=== PATIENT | female | born 1980 | race American Indian/Alaskan Native ===

== ENCOUNTER 2018-08-04 09:09 | Emergency (ER) | payer SELFPAY ==
[2018-08-04 09:22] VITALS: BP 115/71
[2018-08-04] MEDS ORDERED: CLEOCIN 900 MG/50 mL 900 MG/50 ML BAG IV ONE (09:34)
[2018-08-04] MEDS ORDERED: NACL 0.9% 1000 ML 1,000 ML IV ONE (09:34)
--- NOTE | 2018-08-04 09:46 | Emergency Department Report ---
ED ENT HPI - General Chief complaint: Dental/Oral Stated complaint: FACE SWELLING Time Seen by Provider: 08/04/18 09:30 Source: patient Mode of arrival: Ambulatory Limitations: No Limitations - History of Present Illness Initial comments: This is a 37-year-old female nontoxic, well nourished in appearance, no acute signs of distress presents to the ED with c/o of left upper toothache weeks. Patient denies following up with a dentist. Patient stated that pain radiates from his job to his left side of head. Patient otherwise denies any head traum a. Patient describes toothache as aching level of 8 out of 10. Patient stated this morning developed some facial swelling. Patient denies any numbness, tingling, fever, chills, headache, stiff neck, abdominal pain, chest pain, shortness of breath. Patient denies any drug allergies or significant past medical history. MD complaint: tooth pain -: week(s) Location: tooth # 1 - pain here Severity: mild Severity scale (0 -10): 8 Quality: aching Consistency: constant Improves with: none Worsens with: none Associated Symptoms: gum swelling, toothache. denies: cough, pain with swallowing, sore throat, tinnitus, hearing loss, discharge from ear, rhinorrhea - Related Data Previous Rx's Medication Instructions Recorded Last Taken Type Acetaminophen/Codeine [Tylenol 1 tab PO Q6H PRN #12 tab 08/04/18 Unknown Rx /Codeine # 3 tab] Chlorhexidine Mouthwash [Peridex] 15 ml MM BID #1 bottle 08/04/18 Unknown Rx Clindamycin [Clindamycin CAP] 300 mg PO Q6H #28 capsule 08/04/18 Unknown Rx Ibuprofen [Motrin] 600 mg PO Q8H PRN #20 tablet 08/04/18 Unknown Rx Allergies Allergy/AdvReac Type Severity Reaction Status Date / Time No Known Allergies Allergy Unverified 08/04/18 09:23 ED Dental HPI - General Chief complaint: Dental/Oral Stated complaint: FACE SWELLING Time Seen by Provider: 08/04/18 09:30 Source: patient Mode of arrival: Ambulatory Limitations: No Limitations - Related Data Previous Rx's Medication Instructions Recorded Last Taken Type Acetaminophen/Codeine [Tylenol 1 tab PO Q6H PRN #12 tab 08/04/18 Unknown Rx /Codeine # 3 tab] Chlorhexidine Mouthwash [Peridex] 15 ml MM BID #1 bottle 08/04/18 Unknown Rx Clindamycin [Clindamycin CAP] 300 mg PO Q6H #28 capsule 08/04/18 Unknown Rx Ibuprofen [Motrin] 600 mg PO Q8H PRN #20 tablet 08/04/18 Unknown Rx Allergies Allergy/AdvReac Type Severity Reaction Status Date / Time No Known Allergies Allergy Unverified 08/04/18 09:23 ED Review of Systems ROS: Stated complaint: FACE SWELLING Other details as noted in HPI Constitutional: denies: chills, fever Eyes: denies: eye pain, eye discharge, vision change ENT: dental pain. denies: ear pain, throat pain Respiratory: denies: cough, shortness of breath, wheezing Cardiovascular: denies: chest pain, palpitations Endocrine: no symptoms reported Gastrointestinal: denies: abdominal pain, nausea, diarrhea Genitourinary: denies: urgency, dysuria, discharge Musculoskeletal: denies: back pain, joint swelling, arthralgia Skin: denies: rash, lesions Neurological: denies: headache, weakness, paresthesias Psychiatric: denies: anxiety, depression Hematological/Lymphatic: denies: easy bleeding, easy bruising ED Past Medical Hx - Past Medical History Previous Medical History?: No - Surgical History Past Surgical History?: No - Social History Smoking Status: Never Smoker Substance Use Type: None - Medications Home Medications: Home Medications Medication Instructions Recorded Confirmed Last Taken Type Acetaminophen/Codeine [Tylenol 1 tab PO Q6H PRN #12 tab 08/04/18 Unknown Rx /Codeine # 3 tab] Chlorhexidine Mouthwash [Peridex] 15 ml MM BID #1 bottle 08/04/18 Unknown Rx Clindamycin [Clindamycin CAP] 300 mg PO Q6H #28 capsule 08/04/18 Unknown Rx Ibuprofen [Motrin] 600 mg PO Q8H PRN #20 tablet 08/04/18 Unknown Rx ED Physical Exam - General Limitations: No Limitations General appearance: alert, in no apparent distress - Head Head exam: Present: atraumatic, normocephalic - Eye Eye exam: Present: normal appearance - Expanded ENT Exam Expanded Ear exam: Present: normal external inspection Mouth exam: Present: normal external inspection Teeth exam: Present: dental caries, fractured tooth #, dental tenderness #, gingival enlargement, other (some left upper mandible facial swelling. ) Throat exam: Positive: normal inspection, other (Uvula midline. ) - Neck Neck exam: Present: normal inspection, full ROM. Absent: tenderness, meningismus, lymphadenopathy - Extremities Exam Extremities exam: Present: normal inspection, full ROM - Back Exam Back exam: Present: normal inspection, full ROM - Neurological Exam Neurological exam: Present: alert, oriented X3 - Psychiatric Psychiatric exam: Present: normal affect, normal mood - Skin Skin exam: Present: warm, dry, intact, normal color. Absent: rash ED Course Vital Signs 08/04/18 08/04/18 08/04/18 09:17 10:48 11:17 Temperature 98.1 F Pulse Rate 77 Respiratory 18 18 18 Rate Blood Pressure 115/71 O2 Sat by Pulse 98 99 Oximetry 08/04/18 11:18 Temperature Pulse Rate Respiratory 18 Rate Blood Pressure O2 Sat by Pulse Oximetry - Reevaluation(s) Reevaluation #1: 08/04/18 09:45 Patient is speaking in full sentences with no signs of distress noted. - Consultations Consultation #1: 08/04/18 09:46 Patient has been consulted with Dr. Subramanian about patient history, physical exam, and agrees to ED plan of care. Consultation #2: 08/04/18 12:57 Patient has been consulted with Dr. Subramanian about CT results and agrees to the discharge plan of care with follow-up. ED Medical Decision Making - Lab Data Result diagrams: 08/04/18 Unknown 08/04/18 Unknown - Medical Decision Making This is a 37-year-old female that presents with dental abscess. Patient is stable and was examined by me. There is slight swelling to the left upper mandible. CT with contrast obtained and dictated by the raduiologist. Patient is notified of the CT results with no questions noted by the patient. Patient was consulted with Dr. Subramanian and agrees to the ED plan with discharge. I did give patient clindamycin IV in the ED and patient is discharged with clindamycin. He had strict instructions to follow-up with oral maxillary surgeon in 24 hours or if symptoms would worsen to return to emergency room as was possible. Patient is discharged with Ultram, Peridex and Clinda. Patient was instructed not to operate any machinery when taking Ultram due to drowsiness. At time of discharge, the patient does not seem toxic or ill in appearance. No acute signs of distress noted. Patient agrees to discharge treatment plan of care. No further questions noted by the patient. Patient also received a [employer] discount card at discharge. Critical care attestation.: If time is entered above; I have spent that time in minutes in the direct care of this critically ill patient, excluding procedure time. ED Disposition Clinical Impression: Dental abscess Disposition: DC- TO HOME OR SELFCARE Is pt being admited?: No Does the pt Need Aspirin: No Condition: Stable Instructions: Dental Abscess (ED), Acetaminophen/Codeine (By mouth) Additional Instructions: Follow-up with oral maxillary surgeon in 24 hours or if symptoms would worsen to return to emergency room as was possible. 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 [address], [place] [address] Hours: Sunday Closed Sunday 8AM1PM, 25PM Sunday 8AM1PM, 25PM Sunday 8AM1PM, 25PM 8AM1PM, 25PM Sunday 7AM2PM Sunday Closed Prescriptions: Acetaminophen/Codeine [Tylenol /Codeine # 3 tab] 1 tab PO Q6H PRN #12 tab PRN Reason: Pain , Severe (7-10) Chlorhexidine Mouthwash [Peridex] 15 ml MM BID #1 bottle Clindamycin [Clindamycin CAP] 300 mg PO Q6H #28 capsule Ibuprofen [Motrin] 600 mg PO Q8H PRN #20 tablet PRN Reason: Pain Referrals: PRIMARY CARE, [Primary Care Provider] - 3-5 Days JAYME JUNG MD [Staff Physician] - 3-5 Days [facility] [Outside] - 3-5 Days Forms: Work/School Release Form(ED)
[2018-08-04 10:15] LABS: Basophils % (Auto) 0.3 % (0.0-1.8); Eosinophils # (Auto) 0.1 K/mm3 (0.0-0.4); Eosinophils % (Auto) 1.2 % (0.0-4.3); Hematocrit 38.8 % (30.3-42.9); Hemoglobin 12.7 gm/dl (10.1-14.3); Lymphocytes # (Auto) 1.9 K/mm3 (1.2-5.4); Lymphocytes % (Auto) 20.3 % (13.4-35.0); Mean Corpuscular HGB Conc 33 % (30-34); Mean Corpuscular Volume 82 fl (79-97); Monocytes # (Auto) 0.5 K/mm3 (0.0-0.8); Monocytes % (Auto) 5.3 % (0.0-7.3); Platelet Count 258 K/mm3 (140-440); Red Blood Count 4.74 M/mm3 (3.65-5.03); Red Cell Distribution Width 15.3 % (13.2-15.2)
[2018-08-04 10:32] LABS: BUN/Creatinine Ratio 22; Blood Urea Nitrogen 11 mg/dL (7-17); Calcium 8.6 mg/dL (8.4-10.2); Hemolysis Index 7
[2018-08-04] MEDS ORDERED: MORPHINE IV ONE (11:01)
--- NOTE | 2018-08-04 12:30 | Cat Scan Report ---
FINAL REPORT EXAM: CT NECK W CON HISTORY: left dental pain with facial swelling r/o abscess TECHNIQUE: CT of the neck performed. IV contrast was administered. Axial images and coronal and sagi ttal reformatted images were obtained. PRIORS: None. FINDINGS: There is soft tissue swelling edema superficial to the left maxilla. One of the roots of the upper le ft 1st molar extends through the maxillary cortex. There is an adjacent small soft tissue abscess abu tting the cortex measuring approximately 11 by 4 mm. The salivary glands are unremarkable. There is no abnormal lymphadenopathy seen. There is minimal lef t maxillary sinus mucosal thickening. Otherwise sinuses are clear. The thyroid glands are minimally h eterogeneous. Several tiny thyroid nodules identified. There are some nonenlarged lymph nodes in the neck bilaterally. Largest is left anterior triangle dylon suring 15 x 13 x 15 mm. IMPRESSION: Endodontic disease. Specifically, a root of upper left 1st molar extends slightly through the maxilla ry cortex. There is an adjacent 11 x 4 mm abscess abutting the maxilla in this location.
== END 2018-08-04 13:24 | disposition home or self-care (01) ==
LOC: ED 09:09
DX: K04.7 Periapical abscess without sinus (principal)
CPT/HCPCS: 36415; 70491; 80048; 84703; 85025; 96365; 96375; 99284; J2270; J7030; Q9967

== ENCOUNTER 2019-06-14 16:30 | Emergency (ER) | payer SELFPAY ==
--- NOTE | 2019-06-14 16:59 | Emergency Department Report ---
- General Chief complaint: Skin Rash Stated complaint: MOUTH SWELLING W/RASH Time Seen by Provider: 06/14/19 16:54 Source: patient Mode of arrival: Ambulatory Limitations: No Limitations - History of Present Illness Initial comments: pt is a 38 yo female who presents to the ED with c/o a rash that began a few days ago. states that she did use a new face lotion. she states that it is itching. she denies any fever, chills, purulent drainage. she denies any PMHx. she is not on any medications. she denies any allergies to meds. - Related Data Previous Rx's Medication Instructions Recorded Last Taken Type Acetaminophen/Codeine [Tylenol 1 tab PO Q6H PRN #12 tab 08/04/18 Unknown Rx /Codeine # 3 tab] Chlorhexidine Mouthwash [Peridex] 15 ml MM BID #1 bottle 08/04/18 Unknown Rx Clindamycin [Clindamycin CAP] 300 mg PO Q6H #28 capsule 08/04/18 Unknown Rx Ibuprofen [Motrin] 600 mg PO Q8H PRN #20 tablet 08/04/18 Unknown Rx Hydrocortisone 1% [Hydrocortisone 1 applicatio TP TID 7 Days #1 tube 06/14/19 Unknown Rx 1% CREAM] Neomycin/Bacitracin/Polymyxinb 1 applicatio TP BID #1 oint...g. 06/14/19 Unknown Rx [Triple Antibiotic Ointment] diphenhydrAMINE [Benadryl CAP] 25 mg PO Q6HR PRN #14 capsule 06/14/19 Unknown Rx Allergies Allergy/AdvReac Type Severity Reaction Status Date / Time No Known Allergies Allergy Unverified 08/04/18 09:23 Abscess Boil HPI - HPI Chief Complaint: Skin Rash Stated Complaint: MOUTH SWELLING W/RASH Time Seen by Provider: 06/14/19 16:54 Home Medications: Previous Rx's Medication Instructions Recorded Last Taken Type Acetaminophen/Codeine [Tylenol 1 tab PO Q6H PRN #12 tab 08/04/18 Unknown Rx /Codeine # 3 tab] Chlorhexidine Mouthwash [Peridex] 15 ml MM BID #1 bottle 08/04/18 Unknown Rx Clindamycin [Clindamycin CAP] 300 mg PO Q6H #28 capsule 08/04/18 Unknown Rx Ibuprofen [Motrin] 600 mg PO Q8H PRN #20 tablet 08/04/18 Unknown Rx Hydrocortisone 1% [Hydrocortisone 1 applicatio TP TID 7 Days #1 tube 06/14/19 Unknown Rx 1% CREAM] Neomycin/Bacitracin/Polymyxinb 1 applicatio TP BID #1 oint...g. 06/14/19 Unknown Rx [Triple Antibiotic Ointment] diphenhydrAMINE [Benadryl CAP] 25 mg PO Q6HR PRN #14 capsule 06/14/19 Unknown Rx Allergies/Adverse Reactions: Allergies Allergy/AdvReac Type Severity Reaction Status Date / Time No Known Allergies Allergy Unverified 08/04/18 09:23 ED Review of Systems ROS: Stated complaint: MOUTH SWELLING W/RASH Other details as noted in HPI Comment: All other systems reviewed and negative ED Past Medical Hx - Past Medical History Previous Medical History?: No - Surgical History Additional Surgical History: x1 - Social History Smoking Status: Never Smoker Substance Use Type: None - Medications Home Medications: Home Medications Medication Instructions Recorded Confirmed Last Taken Type Acetaminophen/Codeine [Tylenol 1 tab PO Q6H PRN #12 tab 08/04/18 Unknown Rx /Codeine # 3 tab] Chlorhexidine Mouthwash [Peridex] 15 ml MM BID #1 bottle 08/04/18 Unknown Rx Clindamycin [Clindamycin CAP] 300 mg PO Q6H #28 capsule 08/04/18 Unknown Rx Ibuprofen [Motrin] 600 mg PO Q8H PRN #20 tablet 08/04/18 Unknown Rx Hydrocortisone 1% [Hydrocortisone 1 applicatio TP TID 7 Days #1 tube 06/14/19 Unknown Rx 1% CREAM] Neomycin/Bacitracin/Polymyxinb 1 applicatio TP BID #1 oint...g. 06/14/19 Unknown Rx [Triple Antibiotic Ointment] diphenhydrAMINE [Benadryl CAP] 25 mg PO Q6HR PRN #14 capsule 06/14/19 Unknown Rx ED Physical Exam - General Limitations: No Limitations General appearance: alert, in no apparent distress - Head Head exam: Present: atraumatic, normocephalic - Eye Eye exam: Present: normal appearance - ENT ENT exam: Present: mucous membranes moist - Neurological Exam Neurological exam: Present: alert, oriented X3 - Psychiatric Psychiatric exam: Present: normal affect, normal mood - Skin Skin exam: Present: warm, dry, other (erythema with small scaly abrasion of the skin present to the chin, no blistering, no purulent drainage, no increased warmth) ED Medical Decision Making - Medical Decision Making pt is a 38 yo female who presents to the ED with c/o a rash that began a few days ago. states that she did use a new face lotion. she states that it is itching. she denies any fever, chills, purulent drainage. she denies any PMHx. she is not on any medications. she denies any allergies to meds. vitals recorded by nursing note is normal. on exam: erythema with small scaly abrasion of the skin present to the chin, no blistering, no purulent drainage, no increased warmth. given prescription benadryl, hydrocortisone, triple abx ointment. advised pt to please use medication as prescribed. do not use hydrocortisone cream for more than a week. avoid scratching the face. benadryl may cause drowsiness do not drive or operate heavy machinery while taking. follow up with a primary care doctor in the next 2-3 days. use a non scented soap and lotion. return to the emergency room for any new or worsening symptoms. Critical care attestation.: If time is entered above; I have spent that time in minutes in the direct care of this critically ill patient, excluding procedure time. ED Disposition Clinical Impression: Rash Disposition: DC-01 TO HOME OR SELFCARE Is pt being admited?: No Does the pt Need Aspirin: No Condition: Stable Instructions: Acute Rash (ED) Additional Instructions: please use medication as prescribed. do not use hydrocortisone cream for more than a week. avoid scratching the face. benadryl may cause drowsiness do not drive or operate heavy machinery while taking. follow up with a primary care doctor in the next 2-3 days. use a non scented soap and lotion. return to the emergency room for any new or worsening symptoms. Prescriptions: diphenhydrAMINE [Benadryl CAP] 25 mg PO Q6HR PRN #14 capsule PRN Reason: itching Hydrocortisone 1% [Hydrocortisone 1% CREAM] 1 applicatio TP TID 7 Days #1 tube Neomycin/Bacitracin/Polymyxinb [Triple Antibiotic Ointment] 1 applicatio TP BID #1 oint...g. Referrals: [facility] [Provider Group] - 2-3 Days [facility] [Outside] - 2-3 Days [facility] [Outside] - 2-3 Days Time of Disposition: 17:00 Print Language: SWEDISH
== END 2019-06-14 17:50 | disposition home or self-care (01) ==
LOC: ED 16:30
DX: R21 Rash and other nonspecific skin eruption (principal); Z79.899 Other long term (current) drug therapy